=== PATIENT | male | born 1995 | race American Indian/Alaskan Native ===

== ENCOUNTER 2016-09-24 10:29 | Emergency (ER) | payer SELFPAY ==
[2016-09-24 10:52] VITALS: BP 131/85
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
== END 2016-09-24 14:07 | disposition home or self-care (01) ==
LOC: ED 10:29
DX: S30.817A Abrasion of anus, initial encounter (principal); X58.XXXA Exposure to other specified factors, initial encounter; Y93.89 Activity, other specified; Y99.8 Other external cause status; Y92.89 Other specified places as the place of occurrence of the external cause
CPT/HCPCS: 99282

== ENCOUNTER 2016-10-13 13:44 | Emergency (ER) | payer SELFPAY ==
[2016-10-13 14:57] VITALS: BP 147/92
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
== END 2016-10-14 03:13 | disposition left against medical advice (07) ==
LOC: ED 13:44
DX: S61.204A Unspecified open wound of right ring finger without damage to nail, initial encounter (principal); Z53.21 Procedure and treatment not carried out due to patient leaving prior to being seen by health care provider; Y08.89XA Assault by other specified means, initial encounter; Y93.9 Activity, unspecified; Y92.9 Unspecified place or not applicable; Y99.9 Unspecified external cause status

== ENCOUNTER 2017-05-14 17:20 | Emergency (ER) | payer SELFPAY ==
--- NOTE | 2017-05-14 22:56 | Emergency Department Report ---
HPI - General Chief Complaint: Upper Respiratory Infection Time Seen by Provider: 05/14/17 22:31 - HPI HPI: Patient reported difficulty swallowing and sore throat with chills 3 days. He said he didn't take his temperature but he is feeling worse over the last 3 days. He said he been taking Tylenol without any relief. Denies any drooling or swelling of tongue. Denies hitting coughing. Patient reports headache and nausea. Headache and sore throat as 5 on a 10. Headache is located frontally and comes and goes sore throat worse with swallowing. Patient denies any chest pain or shortness of breath. Denies any abdominal or back pain. Patient is on estrogen and transformer in male to female. He also said he has a history of HPV and HIV and that he is not taking any medication. Patient said that he sees infectious disease doctor and his lab work is stable. Denies any runny nose. ED Past Medical Hx - Past Medical History Previous Medical History?: Yes Hx HIV: Yes Additional medical history: HIV, HPV, - Surgical History Past Surgical History?: No - Family History Family history: no significant - Social History Smoking Status: Never Smoker Substance Use Type: None - Medications Home Medications: Home Medications Medication Instructions Recorded Confirmed Last Taken Type Estrogens,Esterified 10/13/16 10/12/16 History Clindamycin HCl 300 mg PO Q8H 10 Days #30 capsule 05/14/17 Unknown Rx Ibuprofen [Motrin] 600 mg PO Q8H PRN 5 Days #15 tablet 05/14/17 Unknown Rx Ondansetron [Zofran Odt] 4 mg PO Q8HR PRN 5 Days #15 05/14/17 Unknown Rx tab.rapdis ED Review of Systems ROS: Stated complaint: HEADACHE/COLD FLASHES Other details as noted in HPI Comment: All other systems reviewed and negative Constitutional: chills Eyes: denies: eye discharge ENT: throat pain. denies: ear pain, dental pain, congestion Respiratory: no symptoms reported Cardiovascular: denies: chest pain, palpitations, dyspnea on exertion, orthopnea , edema, syncope, paroxysmal nocturnal dyspnea Gastrointestinal: nausea. denies: abdominal pain, vomiting, diarrhea, constipation, hematemesis, melena, hematochezia Genitourinary: denies: urgency, dysuria, frequency, hematuria, discharge Musculoskeletal: denies: back pain, joint swelling, arthralgia, myalgia Skin: denies: rash Neurological: headache. denies: weakness, numbness, paresthesias, confusion, abnormal gait, vertigo Physical Exam - Physical Exam Vital Signs: Vital Signs 05/14/17 19:08 Temperature 97.9 F Pulse Rate 90 Respiratory 16 Rate Blood Pressure 134/89 O2 Sat by Pulse 99 Oximetry General: This is a 21-year-old male well-nourished well-developed in no acute distress. Physical Exam: Head: Normocephalic, atraumatic, no abrasion, no bruising and no contusion. Eyes: Biateral pupils equal and reactive to light, bilateral EOM intact.. Bilateral conjunctival and sclera without injection, normal accommodation. No nystagmus Mouth: Moist, positive tonsillar erythema and swelling at 2+. Positive pharyngeal exudate and erythema. No peritonsillar abscesses. Uvula is midline and oral airways patent. Ears: Biateral TM pearly segura Bilateral EAC without any redness swelling or drainage. No mastoid bone tenderness Nose: Bilateral nasal mucosa normal exam. Maxillary and frontal sinuses non- tender to palpate. Neck: Supple, positive Cervical adenopathy, full range of motion and no C-spine tenderness. No swelling or tracheal deviation normal reflexes Cardiovascular: S1, S2. Regular rate and rhythm. No murmur. Capillary refill is less then 3 seconds. Lungs: Clear to auscultate bilaterally. No rhonchi, wheezes or rales. No chest wall tenderness. No chest contusion. No bruising to chest. MSK: Strength 5/5 in all extremities. No joint deformity or crepitus. Normal inspection. Full range of motion to all extremities. No laceration, abrasion or ecchymotic area noted. Patient able to fully flex and extend bilateral knees without any difficulties. Bilateral knees nontender to palpate. Abdomen: Non-tender to palpate in all quadrants, no guarding or rebound tenderness, positive bowel sounds in all quadrants. No CVA tenderness. No hernia, bruit or mass. No rigidity or distention. Extremities: No clubbing, cyanosis or edema. +2 pulses. No neurovascular compromise Skin: Clean, dry and intact. No rash or lesions. Neurological: GCS at 15, Pt is alert and oriented 3 speech is clear. Bilateral hand hub cutter apprentice strong and equal. Normal gait. Negative Romberg and no pronator drift. Normal Reflexes. No motor or sensory deficit Back: No vertebral tenderness, no paraspinal tenderness. The bend over and touch his toes without any difficulties. Ambulates without any difficulties. Psych: Normal mood and behavior ED Course Vital Signs 05/14/17 19:08 Temperature 97.9 F Pulse Rate 90 Respiratory 16 Rate Blood Pressure 134/89 O2 Sat by Pulse 99 Oximetry - Reevaluation(s) Reevaluation #1: 05/14/17 23:47 Patient received Motrin 800 mg by mouth for sore throat and headache, Zofran 8 mg IM for nausea and Deltasone 60 mg by mouth for tonsillar swelling at 2+. Patient able to tolerate oral liquids and no drooling noted. He said he felt better after medication. ED Medical Decision Making - Lab Data Influenza negative Strep negative ,cultures are pending - Medical Decision Making ED course: This is a 21-year-old male that is HIV positive presents to the emergency room with sore throat, nausea and headache over 3 days. Patient said he has chills and has been taking medication that doesn't help. Patient reports that he sees infectious disease doctor and his labs are stable and he is immunocompetent. He is not on any HIV medication per patient. Patient is on estrogen from transition in from male to female. Patient afebrile and his vital signs are stable. He was given Motrin 800 mg by mouth for sore throat and headache, Deltasone 60 mg by mouth for tonsillar swelling and Zofran 8 mg IM for nausea. Patient able to tolerate oral liquids in emergency room and said he felt better. Patient discharged home with prescription for clindamycin , Motrin and Phenergan and to follow up with his infectious disease doctor on Wednesday. Critical care attestation.: If time is entered above; I have spent that time in minutes in the direct care of this critically ill patient, excluding procedure time. ED Disposition Clinical Impression: Exudative pharyngitis, Enlarged tonsils, Cervical lymphadenopathy, Nausea alone Headache Qualifiers: Headache type: unspecified Headache chronicity pattern: acute headache Intractability: not intractable Qualified Code(s): R51 - Headache Disposition: -01 TO HOME OR SELFCARE Is pt being admited?: No Does the pt Need Aspirin: No Condition: Stable Instructions: Acute Headache (ED), Pharyngitis (ED), Strep Throat (ED), Acute Nausea and Vomiting (ED) Additional Instructions: TheseTake antibiotic and other medication as prescribed. Stay home for 3 days and rest Increase her fluid intake to 2-3 L of water per day If his symptoms worsen and you develop respiratory distress, difficulty breathing and closing of throat please return to the emergency room. Prescriptions: Clindamycin HCl 300 mg PO Q8H 10 Days #30 capsule Ibuprofen [Motrin] 600 mg PO Q8H PRN 5 Days #15 tablet PRN Reason: Pain Ondansetron [Zofran Odt] 4 mg PO Q8HR PRN 5 Days #15 tab.rapdis PRN Reason: Nausea And Vomiting Referrals: PRIMARY CARE, [Primary Care Provider] - 05/17/17 [facility] [Outside] - 05/17/17 Forms: Work/School Release Form(ED)
[2017-05-14] MEDS ORDERED: MOTRIN PO ONE (22:57)
[2017-05-14] MEDS ORDERED: DELTASONE PO ONE (22:58)
[2017-05-14] MEDS ORDERED: ZOFRAN IM ONE (22:58)
[2017-05-15 00:04] VITALS: BP 137/84
== END 2017-05-15 00:04 | disposition home or self-care (01) ==
LOC: ED 17:20
DX: J02.9 Acute pharyngitis, unspecified (principal); J35.1 Hypertrophy of tonsils; R59.0 Localized enlarged lymph nodes; R51 Headache; R11.0 Nausea
CPT/HCPCS: 87116; 87400; 87430; 96372; 99283; J2405; J7512